=== PATIENT | male | born 1980 ===

== ENCOUNTER 2022-11-16 07:33 | Outpatient (AMB) | payer BC, SELFPAY ==
--- NOTE | 2022-11-16 07:42 | MHC.OFFVIS ---
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 He reports an episode of sharp sensation in the top of his head followed by tingling down the shoulders . The whole episode lasted few seconds. 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 [facility] Medical History (Updated 11/16/22 @ 08:17 by Bridget Bradford MD) Abnormal MRI of head Tingling Family History Father Afib Review of Systems Const Reports no additional complaints Eyes Reports no additional complaints ENT Reports no additional complaints Card Reports no additional complaints Resp Reports no additional complaints Musc Reports no additional complaints Neuro Reports no additional complaints Physical Exam Vital Signs: Last Vital Signs Pulse 71 11/16/22 07:49 BP 130/90 H 11/16/22 07:49 Pulse Ox 98 11/16/22 07:49 Oxygen Delivery Method Room Air 11/16/22 07:49 BMI result Body Mass Index 24.3 Const General: cooperative, healthy appearing, comfortable and no acute distress Nutritional Appearance: average body habitus Orientation/consciousness: patient oriented x3 Eyes Pupils: Equal, round and reactive pupils present Neuro General: patient oriented x3, gait normal, tone normal, moves all extremities and no focal motor deficits Cranial nerves: Yes Facial sensation intact/muscles of mastication intact, Yes Equal, round and reactive pupils present, Yes Bilaterally intact EOM present, Yes Nystagmus not present, Yes Normal facial strength present, Yes Midline tongue present, Yes Symmetric palate elevation present and Yes Ability to bilaterally elevate shoulders present Cognition (Neuro): normal cognition Gait exam (Neuro): Normal gait present Motor exam (neuro): 5/5 motor strength present throughout, no tremor noted and Normal motor muscle tone present throughout Deep tendon reflexes (DTR's): Right triceps reflex intensity grade: 1+, Left triceps reflex intensity grade: 1+, Rt Biceps (C5, C6): 1+, Left biceps reflex intensity grade: 1+, Right brachioradialis reflex intensity grade: 1+, Left brachioradialis reflex intensity grade: 1+, Right patellar reflex intensity grade: 1+ and Left patellar reflex intensity grade: 1+ Coordination: [id number] test normal Assessment & Plan Assessment & Plan (1) Tingling: Comment: marge related to neck spasm Code(s): R20.2 - Paresthesia of skin (2) Abnormal MRI of head: Comment: 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 Coding Level of Care Code New Pt Level 3 (77136) Diagnoses Tingling R20.2 Abnormal MRI of head R93.0
[2022-11-16 07:49] VITALS: BP 130/90; PULSE 71; O2SAT 98; BMI 24.3
== END 2022-11-16 08:12 | disposition home or self-care (01) ==
PROVIDERS: PCP Internal Medicine; Visit Provider Psychiatry & Neurology Neurology
DX: R20.2 Paresthesia of skin (principal); R93.0 Abnormal findings on diagnostic imaging of skull and head, not elsewhere classified
CPT/HCPCS: 99203

== ENCOUNTER → 2022-11-16 07:33 | Outpatient (BNVA) | payer BC, SELFPAY | PROVIDERS: PCP Internal Medicine; Visit Provider Psychiatry & Neurology Neurology ==